=== PATIENT | male | born 1940 | race Caucasian/White ===

== ENCOUNTER 2018-11-22 11:46 | Emergency (ER) | payer OTHER ==
[2018-11-22 11:58] VITALS: BP 148/81
--- NOTE | 2018-11-22 12:43 | EDPHY ---
H & P Time Seen by Provider: 11/22/18 12:11 HPI/ROS: CHIEF COMPLAINT: Head laceration HISTORY OF PRESENT ILLNESS: The patient is a 78-year-old male who presents to the emergency department after cutting his head on a branch. The patient was doing gardening work. He bent over and then stood up striking his head on a tree branch. He did not lose consciousness. He has no headache. He denies neck pain or back pain. He has had no nausea or vomiting. REVIEW OF SYSTEMS: Negative Past medical history: Negative Smoking Status: Never smoked Physical Exam: Vitals noted General Appearance: Alert and no distress. Head: Pupils equal. Normal. Patient has a 3 cm v-shaped laceration on the crown of his head. No crepitus. No foreign body. Neck: No cervical spine tenderness Respiratory: No respiratory distress. Cardiac: regular rate and rhythm. Extremities: Full range of motion, normal appearing. Skin: No rashes or lesions. Neuro: Alert. Normal mood and affect. Constitutional: Initial Vital Signs Temperature (C) 36.7 C 11/22/18 11:53 Heart Rate 70 11/22/18 11:53 Respiratory Rate 14 11/22/18 11:53 Blood Pressure 148/81 H 11/22/18 11:53 O2 Sat (%) 94 11/22/18 11:53 O2 Delivery Mode Room Air Allergies/Adverse Reactions: No Known Allergies Allergy (Unverified 11/22/18 11:53) Home Medications: Medication Instructions Recorded NK [No Known Home Meds] 11/22/18 Medical Decision Making ED Course/Re-evaluation: In the emergency department I discussed possible etiologies. I answered all of his questions. He consented to have his Laceration repaired. Procedure: Laceration repair. Verbal consent was obtained from the patient. The 3 cm laceration on the head was anesthetized in the usual fashion. The wound was irrigated, draped and explored to its base with a gloved finger. There were no deep structures involved. The wound was repaired with jenna. The wound repair was simple. The procedure was performed by myself. Patient was given warnings prior to leaving. He was given instructions on wound care. Differential Diagnosis: My differential includes but not limited to laceration, foreign body, skull fracture, subarachnoid hemorrhage, subdural hematoma, epidural hematoma Departure - Departure Disposition: Home, Routine, Self-Care Clinical Impression: Scalp laceration Qualifiers: Encounter type: initial encounter Qualified Code(s): S01.01XA - Laceration without foreign body of scalp, initial encounter Condition: Good Instructions: Staple Care (ED), Head Injury (ED) Additional Instructions: Return to the emergency department I have the jenna removed. You should return in 9-10 days. Keep your jenna clean and dry Referrals: ZACHARY DEL VALLE [Primary Care Provider] - 5-7 days, if not improved
== END 2018-12-03 11:08 | disposition home or self-care (01) ==
LOC: CED 11:46
PROC: 0HQ0XZZ Repair Scalp Skin, External Approach (ICD-10-PCS; principal; 2018-11-22)
DX: S01.01XA Laceration without foreign body of scalp, initial encounter (principal); W22.8XXA Striking against or struck by other objects, initial encounter; Y92.007 Garden or yard of unspecified non-institutional (private) residence as the place of occurrence of the external cause; Y93.H2 Activity, gardening and landscaping
CPT/HCPCS: 99282-ER